=== PATIENT | female | born 1940 | race Caucasian/White ===

== ENCOUNTER 2021-06-07 14:24 | Outpatient (CLI) | payer MEDICARE ==
[2021-06-07 15:24] LABS: Hemoglobin 12.8 g/dL (12.0-15.5); Mean Corpuscular HGB CONC 32.5 g/dL (32.0-36.0); Mean Corpuscular Hemoglobin 31.1 pg (27.0-33.0); Mean Corpuscular Volume 95.9 fl (81.6-98.3); Platelet Count 255 10x3/uL (150-450); RBC Distribution Width 13.5 % (11.5-14.5); Red Blood Cell (RBC) Count 4.11 10x6/uL (3.90-5.03)
[2021-06-07 15:49] LABS: Prothrombin Time 10.6 sec (9.5-12.1)
[2021-06-07 15:52] LABS: Anion Gap 15 mmol/L (10-20); BUN (Urea Nitrogen) 18 mg/dL (9.8-20.1); Calc. Creatinine Clearance 0 mL/min (70-130); Calcium 9.5 mg/dL (7.8-10.44); Carbon Dioxide 29 mmol/L (23-31); Chloride 103 mmol/L (98-107); Glucose 113 mg/dL (83-110); Potassium 4.7 mmol/L (3.5-5.1); Sodium 142 mmol/L (136-145)
[2021-06-07 23:49] LABS: SARS-CoV-2 PCR by NAA Not Detected (NotDetected)
== END 2021-06-07 14:25 | disposition home or self-care (01) ==
LOC: LABBT 14:24
PROVIDERS: ATTEND Internal Medicine Cardiovascular Disease
DX: Z01.812 Encounter for preprocedural laboratory examination (principal); I50.42 Chronic combined systolic (congestive) and diastolic (congestive) heart failure; I44.2 Atrioventricular block, complete; Z20.822 Contact with and (suspected) exposure to COVID-19
CPT/HCPCS: 80048; 85027; 85610; U0003; U0005